=== PATIENT | female | born 1960 | race Hispanic/Latino ===

== ENCOUNTER 2019-11-10 14:30 | Emergency (ER) | payer OTHER ==
[~2019-11-10] VITALS: Ht 157.5 cm; Wt 89.4 kg
[~2019-11-10 14:30] MED LIST: BACTRIM DS TAB1 EACH PO; LANTUS 3ML100 UNITS/ SC; LOSARTAN POTASS25 MG PO; METFORMIN HCL850 MG PO; PROTONIX40 MG/ML PO
--- NOTE | 2019-11-10 15:02 | Emergency Department Note ---
History of Present Illnes History of Present Illness Chief Complaint: Abdominal Complaints History of Present Illness This is a 59 year old female L flank pain x 2 days . Radiation: Reports flank (Left) Severity: moderate Past Medical/Family History Physician Review I have reviewed the patient's past medical and family history. Any updates have been documented here. Past Medical History Other Medical History: BREAST CANCER Other Surgery: LEFT PARTIAL MASECTOMY 3 C/S Review of Systems Review of Systems Gastrointestinal: Denies nausea, Denies vomiting Genitourinary: Reports pain Physical Exam Related Data Allergies: Coded Allergies: No Known Allergies (Unverified , 01/29/17) Triage Vital Signs Vital Signs Date Time Temp Pulse Resp B/P (MAP) Pulse Ox O2 Delivery O2 Flow Rate FiO2 11/10/19 14:52 96.4 55 18 142/75 98 Physical Exam CONSTITUTIONAL HENT EYES NECK PULMONARY CARDIOVASCULAR GASTROINTESTINAL GENITOURINARY SKIN MUSCULOSKELETAL NEUROLOGICAL PSYCHOLOGICAL Results Imaging Imaging results reviewed: Yes Impressions [place] [address] Patient Name: BART SWAIN MR #: [id number] : 1960 Age/Sex: 59/F Req #: [id number] Adm Physician: Ordered by: ODILON GEORGE DO Report #: [id number] Location: ER Room/Bed: Procedure: [id number] CT/CT ABDOMEN/PELVIS WO Exam Date: 11/10/19 Exam Time: 1530 REPORT STATUS: Signed CT of the abdomen and pelvis, without contrast. History: Left-sided abdominal/flank pain. Comparison: None available. Technique: Multidetector CT scanning of the abdomen and pelvis was performed from the level of the lung bases to the inferior pubic rami without the use of contrast material. Coronal and sagittal multiplanar reformations were obtained. RADIATION DOSE: Total DLP: 775.12 mGy*cm Dose modulation, iterative reconstruction, and/or weight based adjustment of the mA/kV was utilized to reduce the radiation dose to as low as reasonably achievable. FINDINGS: The visualized intrathoracic contents are unremarkable. The liver is normal in size but appears diffusely decreased in attenuation compatible with fatty infiltration. The gallbladder is surgically absent. There is no biliary ductal dilatation. The stomach, spleen, pancreas, and bilateral adrenal glands demonstrate unremarkable noncontrast appearance. The kidneys are normal in size and location. Two fat-containing lesions are identified within the inferior pole the right kidney measuring up to 1.0 cm, compatible with angiomyolipomas. 3 nonobstructing stones are identified within the right kidney measuring up to 7 mm within the inferior pole. 3 nonobstructing stones are identified within the left kidney measuring up to 4 mm within the the inferior pole. There is a 5 mm stone identified within the mid left ureter resulting in mild prominence of the proximal left ureter and collecting system without significant intrarenal hydronephrosis. The right ureter is normal in course and caliber. The partially distended urinary bladder is unremarkable. The uterus and adnexa demonstrate no significant abnormalities. The abdominal aorta is normal course and caliber. The IVC is normal in caliber. Please note evaluation the bowel is limited without the use of enteric contrast material. The visualized loops of small and large bowel demonstrate no evidence of obstruction or inflammation. The appendix is visualized and appears unremarkable. Diverticula are noted within the sigmoid colon without evidence for acute diverticulitis. There is no ascites or intraperitoneal free air. No abnormally enlarged lymph nodes are identified within the abdomen or pelvis. Small fat-containing inguinal hernias noted bilaterally. The osseous structures demonstrate degenerative changes without evidence for acute fracture or destructive process. The extraperitoneal soft tissues are unremarkable. IMPRESSION: 5 mm stone identified within the mid left ureter resulting in mild prominence of the proximal left ureter and collecting system. Additional subcentimeter nonobstructing renal calculi noted bilaterally. CT findings suggestive of hepatic steatosis. Diverticulosis coli without evidence for acute diverticulitis. Signed by: Dr. Rik Gonzalez MD on 11/10/2019 4:02 PM Dictated By: RIK GONZALEZ MD 1602 Transcribed By: MALIK on 11/10/19 1602 COPY TO: ODILON GEORGE DO~ Assessment & Plan Assessment & Plan Final Impression: (1) Kidney stone Last Vital Signs Date Time Temp Pulse Resp B/P (MAP) Pulse Ox O2 Delivery O2 Flow Rate FiO2 11/10/19 14:52 96.4 55 18 142/75 98 Home Meds Active Scripts Sulfamethoxazole/Trimethoprim (BACTRIM DS TABLET) 1 Each Tablet, 1 EACH PO BID for 14 Days, #20 Prov:FRANCISCA CAMERON NP 02/02/17 Pantoprazole Sod (PROTONIX) 40 Mg/Ml Susp, 40 MG PO ACB for 14 Days Prov:FRANCISCA CAMERON DIESEL ENGINE ASSEMBLER 02/02/17 Reported Medications Losartan Potassium (LOSARTAN POTASSIUM) 25 Mg Tablet, 50 MG PO BID 01/30/17 Insulin Glargine (LANTUS 3ML PEN) 100 Units/1 Ml Inj, 35 UNITS SC HS 01/30/17 Insulin Glargine (LANTUS 3ML PEN) 100 Units/1 Ml Inj, 35 UNITS SC ACB 01/30/17 Metformin Hcl (METFORMIN HCL) 850 Mg Tablet, 800 MG PO BID, #30 TAB 01/30/17 ODILON GEORGE DO Nov 10, 2019 15:02
--- NOTE | 2019-11-10 16:05 | Diagnostic Imaging Report ---
CT of the abdomen and pelvis, without contrast. History: Left-sided abdominal/flank pain. Comparison: None available. Technique: Multidetector CT scanning of the abdomen and pelvis was performed from the level of the lung bases to the inferior pubic rami without the use of contrast material. Coronal and sagittal multiplanar reformations were obtained. RADIATION DOSE: Total DLP: 775.12 mGy*cm Dose modulation, iterative reconstruction, and/or weight based adjustment of the mA/kV was utilized to reduce the radiation dose to as low as reasonably achievable. FINDINGS: The visualized intrathoracic contents are unremarkable. The liver is normal in size but appears diffusely decreased in attenuation compatible with fatty infiltration. The gallbladder is surgically absent. There is no biliary ductal dilatation. The stomach, spleen, pancreas, and bilateral adrenal glands demonstrate unremarkable noncontrast appearance. The kidneys are normal in size and location. Two fat-containing lesions are identified within the inferior pole the right kidney measuring up to 1.0 cm, compatible with angiomyolipomas. 3 nonobstructing stones are identified within the right kidney measuring up to 7 mm within the inferior pole. 3 nonobstructing stones are identified within the left kidney measuring up to 4 mm within the the inferior pole. There is a 5 mm stone identified within the mid left ureter resulting in mild prominence of the proximal left ureter and collecting system without significant intrarenal hydronephrosis. The right ureter is normal in course and caliber. The partially distended urinary bladder is unremarkable. The uterus and adnexa demonstrate no significant abnormalities. The abdominal aorta is normal course and caliber. The IVC is normal in caliber. Please note evaluation the bowel is limited without the use of enteric contrast material. The visualized loops of small and large bowel demonstrate no evidence of obstruction or inflammation. The appendix is visualized and appears unremarkable. Diverticula are noted within the sigmoid colon without evidence for acute diverticulitis. There is no ascites or intraperitoneal free air. No abnormally enlarged lymph nodes are identified within the abdomen or pelvis. Small fat-containing inguinal hernias noted bilaterally. The osseous structures demonstrate degenerative changes without evidence for acute fracture or destructive process. The extraperitoneal soft tissues are unremarkable. IMPRESSION: 5 mm stone identified within the mid left ureter resulting in mild prominence of the proximal left ureter and collecting system. Additional subcentimeter nonobstructing renal calculi noted bilaterally. CT findings suggestive of hepatic steatosis. Diverticulosis coli without evidence for acute diverticulitis. Signed by: Dr. Rik Gonzalez MD on 11/10/2019 4:02 PM
[2019-11-10 17:51] LABS: BILIRUBIN,URINE NEGATIVE (NEGATIVE); CLARITY,URINE SL CLOUDY (CLEAR); COLOR,URINE STRAW (YELLOW); KETONES,URINE TRACE (NEGATIVE); LEUKOCYTE ESTERASE ,URINE SMALL (NEGATIVE); NITRITE,URINE POSITIVE (NEGATIVE); PROTEIN,URINE DIPSTICK 1+ (NEGATIVE); URINE UROBILINOGEN 0.2 mg/dL (0.2 - 1)
[2019-11-10 18:02] LABS: BACTERIA,URINE MANY /HPF; EPITHELIAL CELLS,URINE MODERATE /LPF; WBC,URINE (MAN) 21-50 /HPF (0-5)
== END 2019-11-10 17:52 | disposition home or self-care (01) ==
LOC: ER 16:08
DX: M54.5 Low back pain (principal); N20.0 Calculus of kidney; K57.90 Diverticulosis of intestine, part unspecified, without perforation or abscess without bleeding; Z85.3 Personal history of malignant neoplasm of breast
CPT/HCPCS: 74176; 81001; 99284

== ENCOUNTER 2019-11-14 18:06 | Observation (INO) | payer OTHER ==
[~2019-11-14] VITALS: Ht 157.5 cm; Wt 89.4 kg
[2019-11-14 20:09] LABS: BASOPHILS % 0.4 % (0.0-1.0); EOSINOPHILS # (AUTO) 0.1 (0.0-0.4); EOSINOPHILS % 1.1 % (0.0-6.0); HEMATOCRIT 41.4 % (34.2-44.1); HEMOGLOBIN 12.8 g/dL (12.0-16.0); LYMPHOCYTES # (AUTO) 2.3 (1.0-3.2); LYMPHOCYTES % 21.5 % (18.0-39.1); MEAN CORPUSCULAR HEMOGLOBIN 26.2 pg (28-32); MEAN CORPUSCULAR HGB CONC 30.9 g/dL (31-35); MEAN CORPUSCULAR VOLUME 84.8 fL (81-99); MONOCYTES # (AUTO) 0.5 (0.2-0.8); MONOCYTES % 4.9 % (4.4-11.3); NEUTROPHILS # (AUTO) 7.6 (2.1-6.9); NEUTROPHILS % 71.7 % (38.7-80.0); PLATELET COUNT 279 x10e3/uL (140-360); RED BLOOD COUNT 4.88 x10e6/uL (3.6-5.1); RED CELL DISTRIBUTION WIDTH 13.9 % (11.7-14.4)
[2019-11-14 20:12] LABS: CLARITY,URINE CLEAR (CLEAR); COLOR,URINE YELLOW (YELLOW); LEUKOCYTE ESTERASE ,URINE TRACE (NEGATIVE); NITRITE,URINE NEGATIVE (NEGATIVE)
[2019-11-14 20:13] LABS: BILIRUBIN,URINE NEGATIVE (NEGATIVE); KETONES,URINE TRACE (NEGATIVE); PROTEIN,URINE DIPSTICK 2+ (NEGATIVE); URINE UROBILINOGEN 0.2 mg/dL (0.2 - 1)
[2019-11-14 20:15] LABS: BACTERIA,URINE RARE /HPF; EPITHELIAL CELLS,URINE FEW /LPF
[2019-11-14 20:33] LABS: ALANINE AMINOTRANSFERASE 31 IU/L (0-55); ALBUMIN 3.6 g/dL (3.5-5.0); ALBUMIN/GLOBULIN RATIO 1.1 (0.8-2.0); ALKALINE PHOSPHATASE 100 IU/L (40-150); ANION GAP 14.9 mmol/L (8-16); BLOOD UREA NITROGEN 11 mg/dL (7-26); BUN/CREATININE RATIO 12 (6-25); CALCIUM 9.5 mg/dL (8.4-10.2); CARBON DIOXIDE 25 mmol/L (22-29); CHLORIDE 106 mmol/L (98-107); CREATININE, SERUM 0.93 mg/dL (0.57-1.11); EST GLOMERULAR FILTRATION RATE > 60 ML/MIN (60-); GLUCOSE 266 mg/dL (74-118); POTASSIUM 3.9 mmol/L (3.5-5.1); SODIUM 142 mmol/L (136-145)
--- NOTE | 2019-11-14 22:19 | Diagnostic Imaging Report ---
EXAM: CT Abdomen and Pelvis WITHOUT contrast INDICATION: ^POSSIBLE KIDNEY STONES ^[id number] ^[id number] COMPARISON: 11/10/2019 TECHNIQUE: Abdomen and pelvis were scanned utilizing a multidetector helical scanner from the lung base to the pubic symphysis without administration of IV contrast. Absence of intravenous contrast decreases sensitivity for detection of focal lesions and vascular pathology. Coronal and sagittal reformations were obtained. Stone protocol is performed. IV CONTRAST: None ORAL CONTRAST: None COMPLICATIONS: None RADIATION DOSE: Total DLP: 634 mGy*cm Estimated effective dose: (DLP x 0.015 x size factor) mSv CTDIvol has been reviewed. It is below the limits set by the Radiation Protocol Committee (RPC). Dose modulation, iterative reconstruction, and/or weight based adjustment of the mA/kV was utilized to reduce the radiation dose to as low as reasonably achievable. FINDINGS: LINES and TUBES: None. LOWER THORAX: Unremarkable HEPATOBILIARY: Diffuse fatty infiltration of the liver. No focal hepatic lesions. No biliary ductal dilation. GALLBLADDER: Surgically absent. SPLEEN: No splenomegaly. PANCREAS: No focal masses or ductal dilatation. ADRENALS: No adrenal nodules KIDNEYS/URETERS: Mild left hydronephrosis and perinephric inflammation. Obstructing 5 mm stone at the left ureterovesicular junction. Multiple bilateral nonobstructing intrarenal calculi that measure up to 7 mm in the right kidney and 5 mm in the left kidney. Small right renal angiomyolipoma is unchanged. 2.3 cm left renal simple cyst. GI TRACT: No abnormal distention, wall thickening, or evidence of bowel obstruction. Colonic diverticulosis. Appendix is normal. PELVIC ORGANS/BLADDER: Unremarkable. LYMPH NODES: No lymphadenopathy. VESSELS: Unremarkable. PERITONEUM / RETROPERITONEUM: No free air or fluid. BONES: No acute abnormality. SOFT TISSUES: Unremarkable. IMPRESSION: 1. An obstructing 5 mm stone at the left ureterovesicular junction results in mild left hydronephrosis and mild perinephric inflammation. 2. Additional subcentimeter nonobstructing bilateral intrarenal calculi are unchanged from compared to the previous examination. 3. Diffuse fatty infiltration of the liver. Signed by: Eligio Rubin MD on 11/14/2019 10:16 PM
[2019-11-14] MEDS ORDERED: KETOROLAC TROMETHAMINE 30 MG/ML VIAL IV STA (22:38)
--- NOTE | 2019-11-14 22:38 | Emergency Department Note ---
History of Present Illnes History of Present Illness Chief Complaint: Abdominal Complaints History of Present Illness This is a 59 year old female arrives to the ED with complaints of left flank pain for the past several days. Patient seen on November 09 and discharged home with a kidney stone. Patient states pain has not gone away is not associated with nausea and vomiting. . Chief Complaint Comment PATIENT IN FROM HOME WITH COMPLAINTS OF LEFT FLANK PAIN X 3 DAYS; STATES WAS HERE 3 DAYS AGO AND TREATED FOR KIDNEY STONES AND A URINARY TRACT INFECTION. STATES STILL HAS PAIN RATED 9/10, WITH NAUSEA AND VOMITING Historian: Patient Arrival Mode: Car Onset (how long ago): day(s) Radiation: Reports back Severity: mild Onset quality: gradual Duration (how long): day(s) Timing of current episode: constant Progression: worsening Chronicity: new Relieving factors: none Exacerbating factors: none Past Medical/Family History Physician Review I have reviewed the patient's past medical and family history. Any updates have been documented here. Past Medical History Recent Fever: No Clinical Suspicion of Infectio: Yes New/Unexplained Change in Ment: No Past Medical History: Hypertension, Diabetes, Cancer Other Medical History: BREAST CANCER Past Surgical History: , Mastectomy Other Surgery: LEFT PARTIAL MASECTOMY 3 C/S Social History Physically hurt or threatened: No Other Last Tetanus: UNKNOWN Review of Systems Review of Systems Constitutional: Reports no symptoms EENTM: Reports no symptoms Cardiovascular: Reports no symptoms Respiratory: Reports no symptoms Gastrointestinal: Reports as per HPI, Reports abdominal pain Genitourinary: Reports no symptoms Musculoskeletal: Reports as per HPI, Reports back pain Integumentary: Reports no symptoms Neurological: Reports no symptoms Psychological: Reports no symptoms Endocrine: Reports no symptoms Hematological/Lymphatic: Reports no symptoms Review of other systems: All other systems negative Physical Exam Related Data Allergies: Coded Allergies: No Known Allergies (Unverified , 01/29/17) Triage Vital Signs Vital Signs Date Time Temp Pulse Resp B/P (MAP) Pulse Ox O2 Delivery O2 Flow Rate FiO2 11/14/19 18:42 98.2 73 20 165/84 100 Room Air Vital signs reviewed: Yes Physical Exam CONSTITUTIONAL Constitutional: Present well-developed, Present well-nourished HENT HENT: Present normocephalic, Present atraumatic, Present oropharynx clear/moist, Present nose normal HENT L/R: Present left ext ear normal, Present right ext ear normal EYES Eyes: Reports PERRL, Reports conjunctivae normal NECK Neck: Present ROM normal PULMONARY Pulmonary: Present effort normal, Present breath sounds normal CARDIOVASCULAR Cardiovascular: Present regular rhythm, Present heart sounds normal, Present capillary refill normal, Present normal rate GASTROINTESTINAL Abdominal: Present soft, Present nontender, Present bowel sounds normal GENITOURINARY Genitourinary: Present exam deferred SKIN Skin: Present warm, Present dry MUSCULOSKELETAL Musculoskeletal: Present ROM normal NEUROLOGICAL Neurological: Present alert, Present oriented x 3, Present no gross motor or sensory deficits PSYCHOLOGICAL Psychological: Present mood/affect normal, Present judgement normal Results Laboratory Result Diagram: 11/14/19 1845 11/14/19 1845 Laboratory Laboratory Tests Test 11/14/19 18:45 White Blood Count 10.58 x10e3/uL (4.8-10.8) Red Blood Count 4.88 x10e6/uL (3.6-5.1) Hemoglobin 12.8 g/dL (12.0-16.0) Hematocrit 41.4 % (34.2-44.1) Mean Corpuscular Volume 84.8 fL (81-99) Mean Corpuscular Hemoglobin 26.2 pg (28-32) Mean Corpuscular Hemoglobin Concent 30.9 g/dL (31-35) Red Cell Distribution Width 13.9 % (11.7-14.4) Platelet Count 279 x10e3/uL (140-360) Neutrophils (%) (Auto) 71.7 % (38.7-80.0) Lymphocytes (%) (Auto) 21.5 % (18.0-39.1) Monocytes (%) (Auto) 4.9 % (4.4-11.3) Eosinophils (%) (Auto) 1.1 % (0.0-6.0) Basophils (%) (Auto) 0.4 % (0.0-1.0) Neutrophils # (Auto) 7.6 (2.1-6.9) Lymphocytes # (Auto) 2.3 (1.0-3.2) Monocytes # (Auto) 0.5 (0.2-0.8) Eosinophils # (Auto) 0.1 (0.0-0.4) Basophils # (Auto) 0.0 (0.0-0.1) Absolute Immature Granulocyte (auto 0.04 x10e3/uL (0-0.1) Urine Color Yellow (YELLOW) Urine Clarity Clear (CLEAR) Urine pH 6 (5 - 7) Urine Specific [place] >=1.030 (1.010-1.025) Urine Protein 2+ (NEGATIVE) Urine Glucose (UA) Negative (NEGATIVE) Urine Ketones Trace (NEGATIVE) Urine Blood Moderate (NEGATIVE) Urine Nitrite Negative (NEGATIVE) Urine Bilirubin Negative (NEGATIVE) Urine Urobilinogen 0.2 mg/dL (0.2 - 1) Urine Leukocyte Esterase Trace (NEGATIVE) Urine RBC 11-20 /HPF (0-5) Urine WBC 11-20 /HPF (0-5) Urine Epithelial Cells Few /LPF (NONE) Urine Bacteria Rare /HPF (NONE) Sodium Level 142 mmol/L (136-145) Potassium Level 3.9 mmol/L (3.5-5.1) Chloride Level 106 mmol/L (98-107) Carbon Dioxide Level 25 mmol/L (22-29) Anion Gap 14.9 mmol/L (8-16) Blood Urea Nitrogen 11 mg/dL (7-26) Creatinine 0.93 mg/dL (0.57-1.11) Estimat Glomerular Filtration Rate > 60 ML/MIN (60-) BUN/Creatinine Ratio 12 (6-25) Glucose Level 266 mg/dL (74-118) Calcium Level 9.5 mg/dL (8.4-10.2) Total Bilirubin 0.3 mg/dL (0.2-1.2) Aspartate Amino Transf (AST/SGOT) 27 IU/L (5-34) Alanine Aminotransferase (ALT/SGPT) 31 IU/L (0-55) Alkaline Phosphatase 100 IU/L (40-150) Total Protein 7.0 g/dL (6.5-8.1) Albumin 3.6 g/dL (3.5-5.0) Globulin 3.4 g/dL (2.3-3.5) Albumin/Globulin Ratio 1.1 (0.8-2.0) Lab results reviewed: Yes Imaging Imaging results reviewed: Yes Impressions IMPRESSION: 1. An obstructing 5 mm stone at the left ureterovesicular junction results in mild left hydronephrosis and mild perinephric inflammation. 2. Additional subcentimeter nonobstructing bilateral intrarenal calculi are unchanged from compared to the previous examination. 3. Diffuse fatty infiltration of the liver. Assessment & Plan Medical Decision Making MDM 59-year-old well-appearing female arrived to the ED with continued left flank pain. Patient noted to have a 5 mm obstructing stone that is persistent from her last visit about 4 days ago. Patient stone is now obstructing and causing some perinephric stranding, they're not concerns of possible pyelonephritis. Patient given fluid resuscitation and antibiotics in the emergency department. Patient required hospital admission for further workup and management. Dr. Schilling consulted. Assessment & Plan Final Impression: (1) Kidney stone (2) Pyelonephritis Depart Disposition: ADMITTED Last Vital Signs Date Time Temp Pulse Resp B/P (MAP) Pulse Ox O2 Delivery O2 Flow Rate FiO2 11/14/19 18:42 98.2 73 20 165/84 100 Room Air Home Meds Active Scripts Sulfamethoxazole/Trimethoprim (BACTRIM DS TABLET) 1 Each Tablet, 1 EACH PO BID f or 14 Days, #20 Prov:FRANCISCA CAMERON NP 02/02/17 Pantoprazole Sod (PROTONIX) 40 Mg/Ml Susp, 40 MG PO ACB for 14 Days Prov:FRANCISCA CAMERON INTAKE MAN 02/02/17 Reported Medications Losartan Potassium (LOSARTAN POTASSIUM) 25 Mg Tablet, 50 MG PO BID 01/30/17 Insulin Glargine (LANTUS 3ML PEN) 100 Units/1 Ml Inj, 35 UNITS SC HS 01/30/17 Insulin Glargine (LANTUS 3ML PEN) 100 Units/1 Ml Inj, 35 UNITS SC ACB 01/30/17 Metformin Hcl (METFORMIN HCL) 850 Mg Tablet, 800 MG PO BID, #30 TAB 01/30/17 ADAM CHILDRESS DO Nov 14, 2019 22:38
[2019-11-14] MEDS ORDERED: CEFTRIAXONE SOD 1 GM/NS 50 ML 50 ML IV SCH (22:45)
[2019-11-14] MEDS ORDERED: SODIUM CHLORIDE 0.9% 1000ML 1,000 ML IV SCH (22:45)
[2019-11-15] VITALS (8 sets, daily range): BP systolic 132–151; BP diastolic 60–77
--- NOTE | 2019-11-15 01:00 | NUR ---
Patient came to the unit from er in a stretcher with c/o left flank pain x 3days.admission procedure done with help of language line interior design assistant Ms Mendosa,S ID #[id number].tele #[address]iv changed to right forarm#20g patent. left limb allert.oriented to the unit.bed locked and in lowest position.phone and call light within reach.instructed to call for assistance as needed.patient states family member will bring home med list tomorrow.
[2019-11-15] MEDS ORDERED: KETOROLAC TROMETHAMINE 30 MG/ML VIAL IV STA (01:03)
[2019-11-15] MEDS: SODIUM CHLORIDE 0.9% 1000ML 1,000 ML IV SCH ×3 (02:25→16:48)
[2019-11-15] MEDS: CEFTRIAXONE SOD 1 GM/NS 50 ML 50 ML IV SCH (02:25)
--- NOTE | 2019-11-15 02:44 | NUR ---
urine needs to collect for culture .do strain urine.
--- NOTE | 2019-11-15 05:07 | NUR ---
Patient is resting in the bed.as per the report from er consulted.
--- NOTE | 2019-11-15 06:35 | NUR ---
URINE COLLECTED AND SENT TO THE LAB.
--- NOTE | 2019-11-15 06:50 | NUR ---
Bed side shift report given to oncoming Rn.stable condition.
--- NOTE | 2019-11-15 07:05 | NUR ---
RCD PT AT BED PT IS ALERT AND ORIENTED IV PATENT PT RESTING ON BED PT NPO BED LOW AND LOCKED CALL LIGHT IN REACH
[2019-11-15 07:23] LABS: BASOPHILS % 0.4 % (0.0-1.0); EOSINOPHILS # (AUTO) 0.2 (0.0-0.4); EOSINOPHILS % 2.2 % (0.0-6.0); HEMATOCRIT 39.2 % (34.2-44.1); HEMOGLOBIN 11.9 g/dL (12.0-16.0); LYMPHOCYTES # (AUTO) 4.1 (1.0-3.2); LYMPHOCYTES % 38.2 % (18.0-39.1); MEAN CORPUSCULAR HEMOGLOBIN 26.2 pg (28-32); MEAN CORPUSCULAR HGB CONC 30.4 g/dL (31-35); MEAN CORPUSCULAR VOLUME 86.2 fL (81-99); MONOCYTES # (AUTO) 0.6 (0.2-0.8); MONOCYTES % 5.4 % (4.4-11.3); NEUTROPHILS # (AUTO) 5.7 (2.1-6.9); NEUTROPHILS % 53.5 % (38.7-80.0); PLATELET COUNT 254 x10e3/uL (140-360); RED BLOOD COUNT 4.55 x10e6/uL (3.6-5.1); RED CELL DISTRIBUTION WIDTH 13.9 % (11.7-14.4)
[2019-11-15 07:47] LABS: ALANINE AMINOTRANSFERASE 24 IU/L (0-55); ALKALINE PHOSPHATASE 80 IU/L (40-150); ANION GAP 11.7 mmol/L (8-16); BLOOD UREA NITROGEN 11 mg/dL (7-26); BUN/CREATININE RATIO 15 (6-25); CALCIUM 8.7 mg/dL (8.4-10.2); CARBON DIOXIDE 26 mmol/L (22-29); CHLORIDE 107 mmol/L (98-107); CREATININE, SERUM 0.73 mg/dL (0.57-1.11); EST GLOMERULAR FILTRATION RATE > 60 ML/MIN (60-); GLUCOSE 171 mg/dL (74-118); POTASSIUM 3.7 mmol/L (3.5-5.1); SODIUM 141 mmol/L (136-145)
[2019-11-15] MEDS ORDERED: HYDROCODONE/APAP 5MG-325MG TAB PO PRN (11:45)
[2019-11-15] MEDS ORDERED: ACETAMINOPHEN 325 MG TAB PO PRN (11:45)
[2019-11-15] MEDS ORDERED: HYDRALAZINE HCL 20 MG/ML VIAL IV PRN (11:45)
[2019-11-15] MEDS ORDERED: DOCUSATE SODIUM 100 MG CAP PO PRN (11:45)
[2019-11-15] MEDS ORDERED: MELATONIN 5 MG TABLET PO PRN (11:45)
[2019-11-15] MEDS ORDERED: DEXTROSE 50% SYRINGE 50 ML IV PRN ×2 (11:45→12:30)
--- NOTE | 2019-11-15 12:40 | NUR ---
CONSENT SIGNED BY THE HELP OF ON SITE PROPERTY MANAGER ROXANN Alcantar ,ID NUMBER [id number]
[2019-11-15] MEDS ORDERED: KETOROLAC TROMETHAMINE 30 MG/ML VIAL IV PRN (13:00)
[2019-11-15] MEDS: INSULIN REGULAR, HUMAN 100 UNIT/1 ML 3ML VIAL SQ SCH ×3 (13:38→20:06)
[2019-11-15] MEDS: LOSARTAN POTASSIUM 25 MG TAB PO SCH (16:48)
--- NOTE | 2019-11-15 19:01 | NUR ---
PT RESTING ON BED BED SIDE REPORT GIVEN TO ONCOMING NURSE
--- NOTE | 2019-11-15 19:02 | Consultation ---
DATE OF CONSULTATION: 11/15/2019 Urology Consultation REASON FOR CONSULTATION: Obstructive uropathy. HISTORY OF PRESENT ILLNESS: Jackie Zepeda is a 59-year-old woman with no previous urological history. She denies prior hematuria. She denies urinary tract infections. She does report having some mild dysuria. The patient had severe left-sided flank pain, reported to the emergency room was found to have obstructive uropathy and urological consultation was sought upon admission of the patient. She denies any urinary incontinence. The patient was seen in the emergency room three days prior, treated for kidney stones and urinary tract infection, but her pain recur along with nausea and vomiting and subsequently admission was required having failed outpatient management. PAST MEDICAL AND SURGICAL HISTORY: 1. Status post left partial mastectomy. 2. 3, para 3 by vaginal delivery. 3. Hypertension. 4. Diabetes mellitus. 5. Breast cancer. 6. Obesity. ALLERGIES: NONE KNOWN. CURRENT MEDICATIONS: Please refer to the MAR. SOCIAL HISTORY: The patient denies smoking, ethanol, or drug use. She is a homemaker. FAMILY HISTORY: Noncontributory to the active urological problems. REVIEW OF SYSTEMS: Discussed as above in history of present illness. PAST MEDICAL HISTORY: Otherwise negative for all systems. PHYSICAL EXAMINATION: GENERAL: Healthy-appearing obese woman, lying in bed, in no apparent distress she is currently afebrile. VITAL SIGNS: Currently stable. ABDOMEN: Soft, obese, nondistended, nontender. Minimal left-sided flank tenderness without hepatosplenomegaly. No obvious evidence of hernia. For the remaining physical examination systems, please refer to the admission history and physical as well as the ERT sheet. LABORATORY STUDIES: CT scan of the abdomen and pelvis was performed on November 09 and again yesterday on November 13. It showed a 5 mm left mid ureteral stone several days ago that is now at the left ureterovesical junction and bilateral renal stones with left-sided hydroureteronephrosis. The urinalysis during that emergency room encounter showed RBCs, WBCs with moderate epithelial cells and many bacteria. It is not surprising that this morbidly obese patient could not perform a true clean catch urinary specimen. Unfortunately, urine culture was not done. And so that we may never know if this was a true infection or just a vaginal specimen. White blood cell count is 10,710, hemoglobin 11.9, platelets 254,000. The patient's creatinine is normal at 0.73. She has elevated glucoses, which was expected. Urinalysis this time showed 11-20 RBCs, 11-20 WBCs, few epithelial cells and rare bacteria, 2+ protein was noted as well. The nurses have been straining the urine and the patient has not passed a stone. Her coronavirus test is negative at this time. Unfortunately, in her last ER encounter, coronavirus test was not performed. ASSESSMENT: 1. Left renal colic. 2. Left ureterolithiasis. 3. Bilateral nephrolithiasis. 4. Nausea and vomiting. 5. Morbid obesity. 6. Left hydroureteronephrosis. 7. Microhematuria. 8. Urinary tract infection. 9. Anemia. 10. Proteinuria. PLANS: 1. Stone passage trial. 2. IV hydration. 3. IV analgesia. 4. IV antibiotics. 5. Awaiting urine culture. 6. Should the patient fail to pass her stone, she will be taken to the operating room for ureteroscopy with stone management and insertion of stent. 7. Following resolution or management of this obstructive stone, the patient needs ongoing followup to manage her nephrolithiasis and eventually render her stone free and stent free. 8. Once the above episode is complete, metabolic stone workup would be indicated as well as ongoing urological followup on lifelong basis. Thank you much for involving us in care of your patient. We will be happy to follow her along with you as well as an outpatient. Bharath Schilling MD [place] /[phone]
--- NOTE | 2019-11-15 19:05 | NUR ---
Received the patient in report.lyeing in the bed.stable condition.
--- NOTE | 2019-11-15 20:17 | History and Physical ---
CHIEF COMPLAINT: Left flank pain. HISTORY OF PRESENT ILLNESS: A 59-year-old female with morbidly obese, history of hypertension, type 2 diabetes, comes into the ED with 2 to 3 days history of flank pain. The patient denies any fever at home. No dysuria. Denies any history of nephrolithiasis. Denies any chest pain, palpitation, nausea, or vomiting. Reports subjective fever. No cough, congestion, or any recent travel. IMAGING STUDIES: Performed shows evidence of an obstructing 5 mm stone in the left ureterovesicular junction. REVIEW OF SYSTEMS: Pertinent positives: Left-sided flank pain. Dysuria. Subjective fever. The rest of 14-point review of systems are reviewed with the patient and are negative. ALLERGIES: NO KNOWN DRUG ALLERGIES. MEDICATIONS: Metformin, Protonix, Bactrim, insulin, Lantus, losartan. PAST MEDICAL HISTORY: Type 2 diabetes, hypertension, morbidly obese. PAST SURGICAL HISTORY: Reports none. FAMILY HISTORY: Hypertension, diabetes. SOCIAL HISTORY: No drugs or alcohol. Does not smoke. Good social support. PHYSICAL EXAMINATION: VITAL SIGNS: Temperature is 97.7, pulse 64, respirations 20, blood pressure 151/77, pulse ox 98% on room air. GENERAL: Not in acute distress. Alert and oriented x3. Cooperative on examination. HEENT: Normocephalic and atraumatic. Eyes; pupils are equal, round, and reactive to light bilaterally. Extraocular movements intact bilaterally. Throat; no evidence of erythema or exudates in the posterior pharynx. Has poor dentition. NECK: Supple. Good range of motion throughout. PULMONARY: Clear to auscultation bilaterally. No wheezing, rales, or rhonchi. No crackles appreciated. CARDIOVASCULAR: Positive S1, S2. No murmurs, rubs, or gallops appreciated. ABDOMEN: Soft, nondistended, nontender to palpation. Bowel sounds present. MUSCULOSKELETAL: Strength is 5/5 throughout. No evidence of any muscle deficits on examination. No weakness appreciated. NEUROLOGICAL: Cranial nerves II through XII grossly intact. No evidence of any neurological deficits on exam. SKIN: Intact. Warm to touch. Good cap refill. PSYCHIATRIC: Normal affect and mood. EXTREMITIES: No edema. Good range of motion throughout. LABORATORY DATA: Labs show white count 10.7, hemoglobin 11.9, hematocrit is 39, and platelets of 254. Chemistry; sodium 141, potassium 3.7, chloride 107, bicarb 26, anion gap of 11, BUN 11, creatinine 0.73. Glucose 171. LFTs within normal range. Urinalysis noted. Coronavirus is pending. MICROBIOLOGY: Pending. IMAGING STUDIES: CT abdomen and pelvis shows obstructing 5 mm stone at the left ureterovesicular junction, resulted in mild left hydronephrosis and mild perinephric inflammation. Diffuse fatty infiltrate of the liver. There is additional subcentimeter nonobstructing bilateral intrarenal calculi unchanged from prior examination. IMPRESSION: 1. Left obstructing ureteral fascicular nephrolithiasis. 2. Concerns for underlying pyelonephritis. 3. Type 2 diabetes. 4. Hypertension. PLAN: At this time, Urology has been consulted. She will go ahead and get a diabetic diet for now. N.p.o. after midnight. In the event, she does give a response to stone retrieval. Urine cultures are pending. Continue with IV antibiotic therapy. Resume same home medications. Lantus insulin sliding scale. Resume same antihypertensive medications. Lovenox for DVT prophylaxis. I discussed overall plan of care with the patient at bedside with nursing staff. The patient verbalized understanding. MD MONIQUE Olivarez/AMADOR /[id number]
[2019-11-15] MEDS ORDERED: INSULIN GLARGINE SC SCH (21:00)
--- NOTE | 2019-11-15 21:56 | NUR ---
Assessment done.no resp.distress.no pain voiced.voided .strain urine.phone and call light within reach.instructed to call for assistance as needed.
[2019-11-16] VITALS (8 sets, daily range): BP systolic 131–164; BP diastolic 60–85
[2019-11-16] MEDS: CEFTRIAXONE SOD 1 GM/NS 50 ML 50 ML IV SCH (01:00)
[2019-11-16] MEDS: SODIUM CHLORIDE 0.9% 1000ML 1,000 ML IV SCH ×3 (02:05→16:49)
[2019-11-16 05:28] LABS: BASOPHILS % 0.4 % (0.0-1.0); EOSINOPHILS # (AUTO) 0.3 (0.0-0.4); EOSINOPHILS % 4.1 % (0.0-6.0); HEMATOCRIT 36.9 % (34.2-44.1); HEMOGLOBIN 11.3 g/dL (12.0-16.0); LYMPHOCYTES # (AUTO) 3.8 (1.0-3.2); LYMPHOCYTES % 47.2 % (18.0-39.1); MEAN CORPUSCULAR HEMOGLOBIN 26.3 pg (28-32); MEAN CORPUSCULAR HGB CONC 30.6 g/dL (31-35); MONOCYTES # (AUTO) 0.5 (0.2-0.8); MONOCYTES % 6.3 % (4.4-11.3); NEUTROPHILS # (AUTO) 3.4 (2.1-6.9); NEUTROPHILS % 41.9 % (38.7-80.0); PLATELET COUNT 240 x10e3/uL (140-360); RED BLOOD COUNT 4.29 x10e6/uL (3.6-5.1); RED CELL DISTRIBUTION WIDTH 13.8 % (11.7-14.4)
[2019-11-16 05:48] LABS: ANION GAP 9.9 mmol/L (8-16); BLOOD UREA NITROGEN 10 mg/dL (7-26); BUN/CREATININE RATIO 14 (6-25); CALCIUM 8.7 mg/dL (8.4-10.2); CARBON DIOXIDE 25 mmol/L (22-29); CHLORIDE 109 mmol/L (98-107); CREATININE, SERUM 0.72 mg/dL (0.57-1.11); EST GLOMERULAR FILTRATION RATE > 60 ML/MIN (60-); GLUCOSE 156 mg/dL (74-118); POTASSIUM 3.9 mmol/L (3.5-5.1); SODIUM 140 mmol/L (136-145)
--- NOTE | 2019-11-16 06:58 | NUR ---
BED SIDE SHIFT REPORT GIVEN TO ONCOMING RN.STABLE CONDITION.
--- NOTE | 2019-11-16 07:00 | NUR ---
RECEIVED PATIENT RESTING IN BED NO S/S OF DISTRESS. BED LOW, WHEELS LOCKED, SIDE RAILS X2. CALL LIGHT IN REACH WILL CONTINUE TO MONITOR PATIENT.
[2019-11-16] MEDS: INSULIN GLARGINE 100 UNITS/ML VIAL SQ SCH (07:30)
[2019-11-16] MEDS: INSULIN REGULAR, HUMAN 100 UNIT/1 ML 3ML VIAL SQ SCH ×4 (07:30→21:00)
[2019-11-16] MEDS: LOSARTAN POTASSIUM 25 MG TAB PO SCH ×2 (08:13→16:48)
--- NOTE | 2019-11-16 13:06 | NUR ---
PATIENT LEFT FOR SURGERY IN STABLE CONDITION.
--- NOTE | 2019-11-16 13:46 | Progress Note ---
DATE: 11/16/2019 Medicine Progress Note SUBJECTIVE: The patient is going to undergo cystoscopy with stone extraction today by Urology. No overnight events. PHYSICAL EXAMINATION: VITAL SIGNS: Temperature is 97.5, pulse 66, respiratory rate is 20, blood pressure 164/60, and pulse ox 100% on room air. GENERAL: Not in acute distress. Alert and oriented x3. Cooperative on examination. HEENT: Normocephalic, atraumatic. Eyes; pupils are equal, round, and reactive to light bilaterally. Extraocular movements intact bilaterally. PULMONARY: Clear to auscultation bilaterally. No wheezing, no rales, no rhonchi, no crackles appreciated. CARDIOVASCULAR: Positive S1 and S2. No murmurs, rubs, or gallops appreciated. ABDOMEN: Soft, nondistended, and nontender to palpation. Bowel sounds present. MUSCULOSKELETAL: Strength is 5/5 throughout. No evidence of any muscle deficits on examination. No weakness appreciated. SKIN: Intact. Warm to touch. Good cap refill. PSYCHIATRIC: Normal affect and mood. EXTREMITIES: No edema. Good range of motion throughout. LABORATORY DATA: Show white count 8.1, hemoglobin 11, hematocrit is 36.9, and platelets of 240. Chemistry; sodium 140, potassium 3.9, chloride 109, bicarb 25, anion gap of 9.9, BUN 10, creatinine is 0.72, glucose 156, and calcium is 8.7. Urine cultures still no growth to date. IMPRESSION: 1. Left obstructing nephrolithiasis, 5 mm stone. 2. Concerns for underlying pyelonephritis. 3. Type 2 diabetes. 4. Hypertension. PLAN: At this time, the patient is scheduled for cystoscopy with stone extraction later today by Urology. Continue with IV antibiotics. Monitor urine cultures and blood cultures. Get a.m. labs. She is currently n.p.o. We will restart diet after the procedure. Lovenox for DVT prophylaxis. Plan of care discussed with the patient at bedside using a field human resources manager. MD MONIQUE Olivarez/AMADOR /[id number]
[2019-11-16] MEDS ORDERED: B&O 60MG R/S 60 MG SUPP PR ONE (13:52)
[2019-11-16] MEDS ORDERED: IOPAMIDOL 300MG/ML 50ML INFUS..BTL IV ONE (13:53)
--- NOTE | 2019-11-16 14:55 | NUR ---
PATIENT BACK FROM OR IN STABLE CONDITION. NO S/S OF DISTRESS. CALL LIGHT IN REACH WILL CONTINUE TO MONITOR.
[2019-11-16] MEDS ORDERED: FENTANYL CITRATE/PF 100MCG/2 ML INJ ONE (15:03)
[2019-11-16] MEDS ORDERED: MIDAZOLAM HCL 2 MG/2 ML VIAL ONE (15:03)
[2019-11-16] MEDS ORDERED: LIDOCAINE HCL 2% LOCAL INJ 5 ML SDV VIAL INJ ONE (15:06)
[2019-11-16] MEDS ORDERED: ONDANSETRON HCL INJ 2MG/ML 2ML 2 MG/ML VIAL ONE (15:06)
[2019-11-16] MEDS ORDERED: PROPOFOL IV EMULSION 10 MG/ML 20 ML VIAL ONE (15:06)
[2019-11-16] MEDS ORDERED: SEVOFLURANE INHAL SOLN 250 ML PEN BTL ONE (15:06)
[2019-11-16] MEDS ORDERED: EPHEDRINE SULFATE INJ 50 MG/ML VIAL ONE (15:06)
[2019-11-16] MEDS ORDERED: GLYCOPYRROLATE INJ 0.2 MG/ML VIAL ONE (15:06)
[2019-11-16] MEDS ORDERED: B&O 60MG R/S 60 MG SUPP PR PRN (16:30)
[2019-11-16] MEDS ORDERED: PHENAZOPYRIDINE HCL 100 MG TAB PO PRN (16:30)
--- NOTE | 2019-11-16 19:59 | NUR ---
RECEIVED PT SITTING ON THE SIDE OF THE CHAIR .DENIES PAIN RT FA 20 G NS 125 CC/HR .CALL LIGHT WITH IN REACH ,CONTINUE TO MONITOR
[2019-11-16] MEDS: OXYBUTYNIN CHLORIDE 5 MG TAB PO SCH (21:12)
[2019-11-17] VITALS: BP 149/78
[2019-11-17] MEDS: CEFTRIAXONE SOD 1 GM/NS 50 ML 50 ML IV SCH (01:15)
[2019-11-17] MEDS: SODIUM CHLORIDE 0.9% 1000ML 1,000 ML IV SCH ×2 (01:48→09:13)
[2019-11-17 04:00] VITALS: BP 152/73
[2019-11-17 05:34] LABS: BASOPHILS % 0.4 % (0.0-1.0); EOSINOPHILS # (AUTO) 0.3 (0.0-0.4); EOSINOPHILS % 4.3 % (0.0-6.0); HEMATOCRIT 36.1 % (34.2-44.1); HEMOGLOBIN 11.1 g/dL (12.0-16.0); LYMPHOCYTES # (AUTO) 2.9 (1.0-3.2); LYMPHOCYTES % 36.4 % (18.0-39.1); MEAN CORPUSCULAR HEMOGLOBIN 26.6 pg (28-32); MEAN CORPUSCULAR HGB CONC 30.7 g/dL (31-35); MEAN CORPUSCULAR VOLUME 86.6 fL (81-99); MONOCYTES # (AUTO) 0.5 (0.2-0.8); MONOCYTES % 6.2 % (4.4-11.3); NEUTROPHILS # (AUTO) 4.1 (2.1-6.9); NEUTROPHILS % 52.4 % (38.7-80.0); PLATELET COUNT 205 x10e3/uL (140-360); RED BLOOD COUNT 4.17 x10e6/uL (3.6-5.1); RED CELL DISTRIBUTION WIDTH 13.9 % (11.7-14.4)
[2019-11-17 05:40] LABS: ANION GAP 10.8 mmol/L (8-16); BLOOD UREA NITROGEN 12 mg/dL (7-26); BUN/CREATININE RATIO 15 (6-25); CALCIUM 8.4 mg/dL (8.4-10.2); CARBON DIOXIDE 25 mmol/L (22-29); CHLORIDE 108 mmol/L (98-107); CREATININE, SERUM 0.78 mg/dL (0.57-1.11); EST GLOMERULAR FILTRATION RATE > 60 ML/MIN (60-); GLUCOSE 194 mg/dL (74-118); POTASSIUM 3.8 mmol/L (3.5-5.1); SODIUM 140 mmol/L (136-145)
--- NOTE | 2019-11-17 06:26 | NUR ---
PT RESTING C/O PAIN AND GIVEN ORDERED PAIN MEDICATION CONTINUE TO MONITOR.
--- NOTE | 2019-11-17 07:00 | NUR ---
RECEIVED PATIENT RESTING IN BED NO S/S OF DISTRESS. BED LOW, WHEELS LOCKED, SIDE RAILS X2. CALL LIGHT IN REACH WILL CONTINUE TO MONITOR PATIENT.
[2019-11-17] MEDS: INSULIN GLARGINE 100 UNITS/ML VIAL SQ SCH (07:30)
[2019-11-17] MEDS: INSULIN REGULAR, HUMAN 100 UNIT/1 ML 3ML VIAL SQ SCH ×2 (07:30→11:30)
[2019-11-17 08:25] VITALS: BP 153/76
[2019-11-17] MEDS: OXYBUTYNIN CHLORIDE 5 MG TAB PO SCH (09:04)
[2019-11-17] MEDS: LOSARTAN POTASSIUM 25 MG TAB PO SCH (09:04)
[2019-11-17 09:42] VITALS: BP 153/76
[2019-11-17] MEDS ORDERED: TYLENOL WITH C1 EACH PO (10:28)
[2019-11-17] MEDS ORDERED: DITROPAN XL5 MG PO (10:29)
[2019-11-17] MEDS ORDERED: ceftin PO (13:02)
[2019-11-17 13:05] VITALS: BP 160/67
--- NOTE | 2019-11-17 13:10 | NUR ---
removed patients iv catheter tip intact and pressure dressing applied. patient discharged from facility. gathered all belongings. left unit in wheelchair and went home via private auto.
--- NOTE | 2019-11-17 20:33 | Discharge Summary ---
FINAL DISCHARGE DIAGNOSES: 1. Left obstructing nephrolithiasis, status post cystoscopy with retrograde pyelogram with ureteroscopy, flexible retrieval of the stone with stent placement in the left ureter. 2. Urinary tract infection. 3. Type 2 diabetes. 4. Hypertension. CONSULTANTS: Urology. PHYSICAL EXAMINATION: VITAL SIGNS: Temperature is 97.7, pulse 58, respiratory rate is 20, blood pressure 153/76, and pulse ox 99% on room air. LABORATORY FINDINGS: Show white count 7.8, hemoglobin 11, hematocrit 36, and platelets of 205. Chemistry; sodium 140, potassium 3.8, chloride 108, bicarb 25, anion gap of 10, BUN is 12, creatinine 0.78, glucose 194, calcium is 8.4. LFTs within normal range. Urinalysis; 2+ protein, 11 to 20 rbc's, 11 to 20 wbc's. SEROLOGY: Coronavirus PCR pending. MICROBIOLOGY: Urine cultures were negative. IMAGING STUDIES: CT abdomen and pelvis shows an obstructing 5 mm stone at the left ureteral vesicular junction resulted in mild left hydronephrosis with mild perinephric inflammation. There is additional subcentimeter nonobstructing bilateral intrarenal calculi are unchanged from compared to previous examination. Diffuse fatty infiltrate of the liver. HOSPITAL COURSE: A 59-year-old female, morbidly obese, came into the ED with complaints of left-sided flank pain with imaging studies, CT abdomen and pelvis consistent with a 5 mm obstructing left ureteral vesicular junction stone needing Urology consultation. The patient was on IV antibiotic therapy. The patient underwent status post cystoscopy with retrograde with a left ureteral stent placement and stone retrieval performed on 11/16/2019, by Urology. The patient maintained on IV antibiotic therapy. Urine cultures were negative. The patient did well postprocedurally with no complaints. Her labs were stable. She was discharged on oral antibiotics, Ditropan as well as pain control per Urology. No further workup was needed. The patient was doing well at baseline with no complaints. On the day of discharge, vital signs were stable, labs reviewed and stable. The patient is seen and evaluated, examined thoroughly on the day of discharge. No other complaints. The patient verbalized understanding and agreed to plan of care to follow up as an outpatient with the primary care physician in 1 week and urologist in one month time. MEDICATIONS: See med reconciliation form including Tylenol No. 3, Ditropan, and Ceftin. CONDITION: Stable. DIET: Heart healthy. In the event of any worsening symptoms, the patient was advised to come back to the ED for further evaluation. Discharge summary took greater than 35 minutes. MD MONIQUE Olivarez/MOD[facility]ebo /[id number]
--- NOTE | 2019-12-14 09:52 | Operative Report ---
DATE OF PROCEDURE: 11/16/2019 SURGEON: Bharath Schilling MD PREOPERATIVE DIAGNOSES: 1. Left ureterolithiasis. 2. Left hydronephrosis. 3. Urinary tract infection. 4. Microhematuria. POSTOPERATIVE DIAGNOSES: 1. Microhematuria. 2. Urinary tract infections. 3. Left ureteral stricture. 4. Left ureterolithiasis. 5. Left hydronephrosis due to stone. 6. Grade 2-3 cystocele. 7. Grade 2 rectocele. 8. Atrophic (senile) vaginitis. 9. Urethral stenosis. OPERATION PERFORMED: 1. Cystourethroscopy with bilateral ureteral catheterization and retrograde ureteropyelography (separate procedure performed for the hematuria and urinary tract infections). 2. Interpretation of retrograde ureteropyelography. 3. Supervision of fluoroscopy, no radiologist was present. 4. Left ureteroscopy with dilation of ureteral stricture (separate procedure performed for the diagnosis of stricture). 5. Left ureteroscopy with stone manipulation and extraction (separate procedure performed for the left ureterolithiasis). 6. Cystourethroscopy with insertion of left indwelling ureteral stent (separate procedure performed to relieve the hydronephrosis). 7. Urological services with supervision and interpretation of ureteroscopy. 8. Pelvic examination under anesthesia. 9. Cystoscopy with dilation of urethral stenosis. ANESTHESIA: General. COMPLICATIONS: None. CLINICAL SUMMARY: Jackie Zepeda is a 59-year-old woman with the above preoperative diagnoses. She is brought for the above procedure. She is aware of the risks of bleeding, infection, injury to adjacent structures, need for additional procedures, and elected to proceed. OPERATIVE PROCEDURE IN DETAIL: Informed consent was verified. Jackie Zepeda was properly identified, taken to the operating room, placed on the cystoscopy table in supine position. Anesthesia was uneventfully begun. The patient was then carefully and gently repositioned in the dorsal lithotomy position with all pressure points well padded. Her genitalia were prepared and draped in usual sterile fashion. The cystoscope sheath with obturator in place was atraumatically inserted to the patient's urethra and bladder was drained. Panendoscopy of the bladder revealed no suspicion of lesions, no tumors, no stones, no diverticula. There was obvious signs of cystitis and a ureteral catheter was used to cannulate the right ureter and retrograde ureteropyelograms were performed. It was then inserted in the left ureter and retrograde ureteropyelograms were performed. A guidewire was then placed into the left ureter and guided to the level of the patient's kidney. Semi-rigid ureteroscope was then placed alongside the guidewire and guided into the distal left ureter. There was obstruction there and it was difficult to negotiate the ureteral scope. We did not want to injure the ureter. Therefore, we took a flexible ureteroscopy sheath and placed it over the guidewire and then dilated the stricture. We then placed the ureteroscope through the strictured area. We identified the ureteral stone was grasped with a 4-wire flat wire basket and atraumatically extracted. With cystoscope and fluoroscopic guidance, a left-sided indwelling ureteral stent was then placed. It was coiled in the patient's kidney as well as the patient's bladder. The retaining suture was cut short. The patient's bladder was drained. Cystoscope was withdrawn. Pelvic examination under anesthesia revealed a grade 2-3 cystocele, grade 2 rectocele, there was atrophic (senile) vaginitis. It should be noted at the beginning of the cystoscopy, the cystoscope sheath was inserted in the patient's urethra with significant resistance was calibrating and dilating at 222.5-[place] in size. Therefore, at the end of the procedure, we then utilized dilators to dilate the patient's urethra to 30-[place] in size. Plans will be to follow the patient up for stent removal and ongoing urological followup. MD BRENT Collins/AMADOR /[id number]
== END 2019-11-17 13:10 | disposition home or self-care (01) ==
LOC: ER 18:55 → ERHOLD 23:11 → MED/SURG 11-15 00:54
PROVIDERS: ADMIT Internal Medicine; ATTEND Internal Medicine
DX: N13.6 Pyonephrosis (principal); E66.01 Morbid (severe) obesity due to excess calories; Z68.36 Body mass index [BMI] 36.0-36.9, adult; N20.1 Calculus of ureter; R31.29 Other microscopic hematuria; R11.2 Nausea with vomiting, unspecified; Z11.59 Encounter for screening for other viral diseases; Z85.3 Personal history of malignant neoplasm of breast; D64.9 Anemia, unspecified
CPT/HCPCS: 36415 ×4; 52325; 52332; 52344; 74176; 74420; 80048 ×2; 80053 ×2; 81001; 82948 ×3; 83970; 84550; 85025 ×4; 87086; 88300; 99284; C1758; C1766; C1769; C2617; G0378 ×4; J0696 ×2; J1815; J1817; J1885; J2001; J2250; J2405; J2704; J3010; J7030 ×3; Q9967; U0002